=== PATIENT | female | born 1980 | race Caucasian/White ===

== ENCOUNTER 2019-04-01 10:09 | Emergency (ER) | payer MEDICAID ==
[~2019-04-01] VITALS: Ht 152.4 cm; Wt 67.1 kg
[2019-04-01 10:15] VITALS: BP 139/68; PULSE 87; RESP 16; Ht 152.4 cm; Wt 67.1 kg
[2019-04-01] MEDS ORDERED: LOPE2CAP PO (10:40)
[2019-04-01] MEDS ORDERED: CIPR500T4 PO (10:40)
[2019-04-01] MEDS ORDERED: ONDA4TAB8 PO (10:40)
--- NOTE | 2019-04-01 10:40 | ERD ---
ER Documentation Chief Complaint Chief Complaint DIARRHEA, HEADACHE, VOMITING SINCE LAST NIGHT HPI 38-year-old female presents to the emergency department complaining of diarrhea. Patient states that both her and her son had a meal with chicken and vegetables approximately 2 nights ago and since then she is been having diarrhea. She reports no blood in her stool. She has had nonbilious, nonbloody emesis. She had a diffuse, nonspecific, visceral abdominal discomfort. ROS All systems reviewed and are negative except as per history of present illness. Medications Home Meds Reported Medications [None] No Conflict Check 11/29/10 Allergies Allergies: Coded Allergies: No Known Drug Allergy (Verified Allergy, Mild, 09/22/13) PMhx/Soc History of Surgery: No Anesthesia Reaction: No Hx Neurological Disorder: No Hx Respiratory Disorders: No Hx Cardiac Disorders: No Hx Psychiatric Problems: No Hx Miscellaneous Medical Probl: No Hx Alcohol Use: No Hx Substance Use: No Hx Tobacco Use: No FmHx Positive sick contact Physical Exam Vitals Vital Signs Date Temp Pulse Resp B/P (MAP) Pulse Ox O2 O2 Flow FiO2 Time Delivery Rate 04/01/19 99.4 87 16 139/68 99 10:15 (91) Physical Exam GENERAL: The patient is well developed and appropriate for usual state of health in no apparent distress HEENT: Pupils equal, round, and reactive to light. EOMI. There is no scleral icterus. NECK: C-spine is soft and supple, there is no meningismus. There is no cervical lymphadenopathy. LUNGS: Clear to auscultation bilaterally. There are no rales, wheezes or rhonchi. HEART: Regular rate and rhythm, no murmurs, clicks, rubs or gallops. ABDOMEN: Soft, non-tender, non-distended. There are bowel sounds in all four quadrants. No rebound or guarding. EXTREMITIES: There is no peripheral cyanosis or edema. No focal swelling or erythema. NEURO: The patient moves all four extremities with 5/5 strength. Cranial nerves II - XII are intact. Normal gait. Alert and oriented SKIN: There is no apparent rash or petechiae. HEME/LYMPHATIC: There is no evidence of excessive bruising or lymphedema. PSYCHIATRIC: The patient does not appear anxious or depressed. Procedures/MDM Patient was taken to a room, seen and examined Medical decision makin-year-old otherwise healthy female presents the emergency department with what appears to be a food poisoning type gastroenteritis. Patient has no clinical evidence of dehydration and no concerns for appendicitis or other significant intra-abdominal concerns. Overall, patient is currently nontoxic and appropriate for discharge. Departure Diagnosis: Primary Impression: Diarrhea Condition: Good RICARDO ALANIS Apr 01, 2019 10:39
== END 2019-04-01 10:59 | disposition home or self-care (01) ==
LOC: FTE 10:09
DX: R19.7 Diarrhea, unspecified (principal)
CPT/HCPCS: 99283